=== PATIENT | male | born 1975 | race African-American/Black ===

== ENCOUNTER 2020-06-22 21:14 | Emergency (ER) | payer MEDICAID ==
[~2020-06-22] VITALS: Ht 182.9 cm; Wt 111.1 kg
[2020-06-22] MEDS ORDERED: CLINDAMYCIN HCL 150 MG CAPSULE PO ONE (22:15)
[2020-06-22] MEDS ORDERED: KETOROLAC TROMETHAMINE 60 MG INJ IM ONE ×2 (22:15→22:22)
[2020-06-22] MEDS ORDERED: CLIN300C12 PO (22:19)
[2020-06-22] MEDS ORDERED: KETO10TA2 PO (22:19)
[2020-06-22] MEDS ORDERED: CLINDAMYCIN HCL 300 MG CAPSULE ONE (22:22)
--- NOTE | 2020-06-22 22:23 | NUR ---
45 y/o male presents to ED for a tooth ache. Had a crown put in yesterday and immediately after the Novacaine wore off he felt strong pain. Decided to visit ED. No other issues or complaints at this time.
--- NOTE | 2020-06-22 22:25 | NUR ---
Patient discharged to home in stable condition. Written and verbal after care instructions given. Patient verbalizes understanding of instructions. Stressed follow up or return to ER for worsening s/s. Steady gait. Belongings with patient.
[2020-06-22 22:26] VITALS: BP 127/87
== END 2020-06-22 22:28 | disposition home or self-care (01) ==
LOC: ER 21:14
DX: M27.2 Inflammatory conditions of jaws (principal); E11.9 Type 2 diabetes mellitus without complications; F17.200 Nicotine dependence, unspecified, uncomplicated
CPT/HCPCS: 96372; 99283; J1885; A4663

== ENCOUNTER 2021-05-03 02:12 | Emergency (ER) | payer MEDICAID ==
[~2021-05-03] VITALS: Ht 182.9 cm; Wt 101.6 kg
[~2021-05-03 02:12] MED LIST: CLIN300C12 PO; KETO10TA2 PO
--- NOTE | 2021-05-03 02:29 | NUR ---
DR. MANN AT BEDSIDE, MSE IN PROGRESS.
--- NOTE | 2021-05-03 02:41 | NUR ---
Patient discharged to home in stable condition. Written and verbal after care instructions given. Patient verbalizes understanding of instructions. Stressed follow up or return to ER for worsening s/s. pt ambulated with dteady gait. denies pain.
[2021-05-03 02:42] VITALS: BP 119/81
[2021-05-03] MEDS ORDERED: TDAP DIPH,PERTUSS,TET VAC/PF 0.5 ML DISP.SYRIN IM ONE ×2 (02:45)
== END 2021-05-03 02:43 | disposition home or self-care (01) ==
LOC: ER 02:22
DX: S61.431A Puncture wound without foreign body of right hand, initial encounter (principal); W45.0XXA Nail entering through skin, initial encounter; Y93.89 Activity, other specified; Y92.89 Other specified places as the place of occurrence of the external cause; F17.210 Nicotine dependence, cigarettes, uncomplicated
CPT/HCPCS: 90715; A4663

== ENCOUNTER 2021-05-22 17:07 | Emergency (ER) | payer MEDICAID ==
[~2021-05-22] VITALS: Ht 182.9 cm; Wt 102.1 kg
--- NOTE | 2021-05-22 17:53 | NUR ---
PT IS IN ROOM #2A. DR ESQUIVEL EVALUATED THE PT.
[2021-05-22] MEDS ORDERED: PRED20TA PO (18:22)
[2021-05-22] MEDS ORDERED: HYDR-4209 PO (18:22)
--- NOTE | 2021-05-22 18:42 | NUR ---
PT WAS D/C'd TO HOME. D/C INSTRUCTIONS GIVEN TO THE PT BY DR ESQUIVEL.
[2021-05-22 18:43] VITALS: BP 132/89
== END 2021-05-22 18:44 | disposition home or self-care (01) ==
LOC: ER 17:09
DX: M25.511 Pain in right shoulder (principal); F17.210 Nicotine dependence, cigarettes, uncomplicated
CPT/HCPCS: 73030; A4663

== ENCOUNTER 2021-08-20 13:42 | Emergency (ER) | payer MEDICAID ==
[~2021-08-20] VITALS: Ht 182.9 cm; Wt 102.1 kg
[~2021-08-20 13:42] MED LIST changes: +HYDR-4209 PO; +PRED20TA PO
--- NOTE | 2021-08-20 13:56 | NUR ---
[email or web address],medical screening exam in progress
[2021-08-20] MEDS ORDERED: KETOROLAC TROMETHAMINE 60 MG INJ IM ONE ×2 (14:00→14:03)
[2021-08-20] MEDS ORDERED: IBUP-1957 PO (14:03)
[2021-08-20] MEDS ORDERED: CLIN300C12 PO (14:03)
--- NOTE | 2021-08-20 14:17 | NUR ---
Patient discharged to home in stable condition with brisk steady gait. Written and verbal after care instructions given. Patient verbalized understanding and compliance of instructions. Stressed follow up with his dentist and specialized dental provider or return to ER for worsening s/s.
== END 2021-08-20 14:19 | disposition home or self-care (01) ==
LOC: ER 13:42
DX: K03.81 Cracked tooth (principal); F17.210 Nicotine dependence, cigarettes, uncomplicated; R03.0 Elevated blood-pressure reading, without diagnosis of hypertension
CPT/HCPCS: 96372; 99283; J1885; A4663

== ENCOUNTER 2021-09-28 11:07 | Emergency (ER) | payer MEDICAID ==
[~2021-09-28] VITALS: Ht 182.9 cm; Wt 102.1 kg
[~2021-09-28 11:07] MED LIST changes: +IBUP-1957 PO
--- NOTE | 2021-09-28 12:35 | NUR ---
Dr Garcia at the bedside for MSE.
[2021-09-28] MEDS ORDERED: IBUPROFEN 400 MG TABLET ONE (12:44)
[2021-09-28] MEDS ORDERED: ACETAMINOPHEN 325 MG TABLET ONE (12:44)
[2021-09-28] MEDS ORDERED: IBUPROFEN 400 MG TABLET PO ONE (12:45)
[2021-09-28] MEDS ORDERED: ACETAMINOPHEN 325 MG TABLET PO ONE (12:45)
[2021-09-28 14:05] VITALS: BP 121/68
--- NOTE | 2021-09-28 14:05 | NUR ---
Patient discharged to home in stable condition. Written and verbal after care instructions given. Patient verbalizes understanding of instructions. Stressed follow up or return to ER for worsening s/s.
== END 2021-09-28 14:06 | disposition home or self-care (01) ==
LOC: ER 11:07
DX: M25.511 Pain in right shoulder (principal); F17.210 Nicotine dependence, cigarettes, uncomplicated
CPT/HCPCS: 73030; A4663

== ENCOUNTER 2021-10-02 02:45 | Emergency (ER) | payer MEDICAID ==
[~2021-10-02] VITALS: Ht 182.9 cm; Wt 102.1 kg
--- NOTE | 2021-10-02 02:55 | NUR ---
Dr. De La Torre at bedside for MSE
[2021-10-02] MEDS ORDERED: PIPERACILLIN/TAZOBACTAM/D5W 50 ML IV ONE (02:59)
[2021-10-02] MEDS ORDERED: ONDANSETRON ODT 4 MG TAB.RAPDIS ONE (02:59)
[2021-10-02] MEDS ORDERED: HYDROCODONE/APAP 5-325MG TABLET ONE (02:59)
[2021-10-02] MEDS ORDERED: PIPERACILLIN SODIUM/TAZOBACTAM 3.375 G in IV DEXTROSE 5% 50 ML IV ONE (03:00)
[2021-10-02] MEDS ORDERED: ONDANSETRON ODT 4 MG TAB.RAPDIS SL ONE (03:00)
[2021-10-02] MEDS ORDERED: HYDROCODONE/APAP 5-325MG TABLET PO ONE (03:00)
[2021-10-02] MEDS ORDERED: AMOX-430 PO (03:05)
[2021-10-02] MEDS ORDERED: HYDR-4209 PO (03:05)
[2021-10-02] MEDS ORDERED: ONDA4TAB5 PO (03:05)
[2021-10-02 03:43] VITALS: BP 125/78
== END 2021-10-02 03:43 | disposition home or self-care (01) ==
LOC: ER 02:47
DX: S61.202A Unspecified open wound of right middle finger without damage to nail, initial encounter (principal); Y04.1XXA Assault by human bite, initial encounter; Y93.89 Activity, other specified; Y92.511 Restaurant or cafe as the place of occurrence of the external cause; Z91.013 Allergy to seafood; F17.210 Nicotine dependence, cigarettes, uncomplicated
CPT/HCPCS: 99284; 96365; 99406; J2543; A4663; Q0162

== ENCOUNTER 2021-10-03 14:42 | Emergency (ER) | payer MEDICAID ==
[~2021-10-03] VITALS: Ht 182.9 cm; Wt 102.1 kg
[~2021-10-03 14:42] MED LIST changes: +AMOX-430 PO; +ONDA4TAB5 PO
[2021-10-03 16:14] VITALS: BP 121/79
--- NOTE | 2021-10-03 16:14 | NUR ---
Patient discharged to home in stable condition. Written and verbal after care instructions given. Patient verbalizes understanding of instructions. Stressed follow up or return to ER for worsening s/s. Patient ambualted with steady gait. A/Ox4.
== END 2021-10-03 16:15 | disposition home or self-care (01) ==
LOC: ER 14:43
DX: S61.252D Open bite of right middle finger without damage to nail, subsequent encounter (principal); Y04.1XXD Assault by human bite, subsequent encounter; R22.9 Localized swelling, mass and lump, unspecified; F17.210 Nicotine dependence, cigarettes, uncomplicated; Z91.013 Allergy to seafood
CPT/HCPCS: 73140; A4663

== ENCOUNTER 2021-10-15 13:35 | Emergency (ER) | payer MEDICAID ==
[~2021-10-15] VITALS: Ht 182.9 cm; Wt 102.1 kg
--- NOTE | 2021-10-15 13:50 | NUR ---
AT BEDSIDE FOR EVALUATION.
[2021-10-15] MEDS ORDERED: IV NORMAL SALINE 500 ML BAG IV ONE ×2 (14:00→15:15)
--- NOTE | 2021-10-15 14:00 | NUR ---
20 gauge IV started on left forearm. Iv flushed and patent. Patient started on fluids. Comfort measures provided.
[2021-10-15 14:39] LABS: HEMATOCRIT 42.4 % (36.7-47.1); MEAN CORPUSCULAR HEMOGLOBIN 26.6 uug (23.8-33.4); MEAN CORPUSCULAR VOLUME 82.8 fL (73.0-96.2); PLATELET COUNT (AUTO) 200 K/uL (152-348)
[2021-10-15 14:44] LABS: CREATININE 1.2 mg/dL (0.6-1.3); POTASSIUM 3.9 mmol/L (3.5-5.1)
--- NOTE | 2021-10-15 14:45 | NUR ---
Patient was given a light snack. Reported no discomfort at time.
[2021-10-15 15:30] LABS: *BILIRUBIN,URIN NEGATIVE (NEGATIVE); *BLOOD, URINE NEGATIVE (NEGATIVE); *CLARITY,URINE CLEAR (CLEAR); *KETONES,URINE NEGATIVE (NEGATIVE); *UROBILINOGEN,URINE 0.2 E.U./dl (NORMAL); LEUKOCYTE ESTERASE ,URINE NEGATIVE (NEGATIVE); NITRITE, URINE NEGATIVE (NEGATIVE)
[2021-10-15 15:35] LABS: *COLOR,URINE STRAW (YELLOW); UGLUCOSE 2+ (NEGATIVE)
[2021-10-15 15:42] LABS: ABG BASE EXCESS 0.8 mmol/L; ABG HCO3 27.8 mmol/L; ABG PH 7.329 (7.350-7.450); ABG SITE RIGHT RADIAL; ABG TOTAL HEMOGLOBIN 14.4 G/dL (13.5-18.0); COHb 2.4 % (0.5-1.5); MetHb 0.3 % (0.0-1.5); O2Hb 55.5 % (94.0-97.0); VENT MODE Room Air
[2021-10-15 15:55] LABS: BACTERIA,URINE NONE SEEN /HPF (NONE SEEN); WBC,URINE NONE SEEN /HPF (0-3)
[2021-10-15 15:56] LABS: RBC,URINE 0-3 /HPF (0-3)
[2021-10-15 16:31] LABS: POTASSIUM 4.1 mmol/L (3.5-5.1)
[2021-10-15] MEDS ORDERED: METF-440 PO (16:46)
--- NOTE | 2021-10-15 17:10 | NUR ---
EB=[id number]. DISCHARGE INSTRUCTIONS RENDERED BY MD PRESCRIPTION FOR METFORMIN RENDERED. PT TO FOLLOW UP WITH PMD. SALINE LOCK DCD. PT FEELING BETTER AT THIS TIME; COUNSELLED ON DIETARY RECOMMEDATION AND BLOOD SUGAR CHECKING.
[2021-10-15 17:14] VITALS: BP 106/69
== END 2021-10-15 17:25 | disposition home or self-care (01) ==
LOC: ER 13:35
DX: R20.2 Paresthesia of skin (principal); R73.9 Hyperglycemia, unspecified; Z91.013 Allergy to seafood; Z82.49 Family history of ischemic heart disease and other diseases of the circulatory system; F17.210 Nicotine dependence, cigarettes, uncomplicated; E87.2 Acidosis
CPT/HCPCS: 80048 ×2; 81001; 82009; 85025; 85379; 36415; 70450; 99284; 96360; 36600; J7040 ×2; A4663

== ENCOUNTER 2021-10-17 19:41 | Emergency (ER) | payer SELFPAY ==
[~2021-10-17 19:41] MED LIST changes: +METF-440 PO
--- NOTE | 2021-10-17 20:00 | NUR ---
PATIENT WAS CALLED TO BE TRIAGED BUT WAS NOT PRESENT IN THE WAITING ROOM OR OUTSIDE OF ER.
--- NOTE | 2021-10-17 20:30 | NUR ---
PATIENT WAS CALLED TO BE TRIAGED BUT WAS NOT PRESENT IN THE WAITING ROOM OR OUTSIDE OF ER.
--- NOTE | 2021-10-17 21:00 | NUR ---
PATIENT WAS CALLED TO BE TRIAGED BUT WAS NOT IN THE WAITING ROOM OR OUTSIDE OF ER. PATIENT WAS NOT TRIAGED OR SEEN BY ERMD.
== END 2021-10-17 21:00 | disposition left against medical advice (07) ==
LOC: ER 19:43
DX: Z53.21 Procedure and treatment not carried out due to patient leaving prior to being seen by health care provider (principal)

== ENCOUNTER 2021-10-18 09:24 | Inpatient (IN) | payer MEDICAID ==
[~2021-10-18] VITALS: Ht 182.9 cm; Wt 104.3 kg
[2021-10-18] MEDS ORDERED: IV NORMAL SALINE 1000 ML BAG IV ONE (09:45)
[2021-10-18] MEDS ORDERED: ACETAMINOPHEN ES 500 MG TABLET PO ONE (09:45)
[2021-10-18 09:52] LABS: HEMATOCRIT 43.5 % (36.7-47.1); MEAN CORPUSCULAR HEMOGLOBIN 26.9 uug (23.8-33.4); MEAN CORPUSCULAR VOLUME 83.2 fL (73.0-96.2); PLATELET COUNT (AUTO) 201 K/uL (152-348)
[2021-10-18 10:14] LABS: CREATININE 1.2 mg/dL (0.6-1.3); POTASSIUM 4.2 mmol/L (3.5-5.1)
[2021-10-18] MEDS ORDERED: INSULIN REGULAR, HUMAN 300 UNIT/3 ML VIAL SQ ONE (10:15)
[2021-10-18] MEDS ORDERED: ACETAMINOPHEN ES 500 MG TABLET ONE (10:28)
[2021-10-18] MEDS ORDERED: INSULIN REGULAR, HUMAN 300 UNIT/3 ML VIAL ONE (10:28)
[2021-10-18 10:43] LABS: ABG BASE EXCESS 1.7 mmol/L; ABG HCO3 27.1 mmol/L; ABG PCO2 45.1 mmHg (35.0-45.0); ABG PH 7.396 (7.350-7.450); ABG PO2 54.1 mmHg (75.0-100.0); ABG SITE RIGHT BRACHIAL; ABG TOTAL HEMOGLOBIN 14.6 G/dL (13.5-18.0); COHb 2.4 % (0.5-1.5); O2Hb 87.4 % (94.0-97.0); VENT MODE ROOM AIR
[2021-10-18 11:02] LABS: ETHANOL < 3 MG/DL (0-0)
[2021-10-18 11:04] LABS: ALANINE AMINOTRANSFERASE 16 U/L (16-63); ALKALINE PHOSPHATASE 69 U/L (50-136); ASPARTATE AMINOTRANSFERASE 16 U/L (15-37); BILIRUBIN,DIRECT 0.1 mg/dL (0.0-0.2); BILIRUBIN,TOTAL 0.2 mg/dL (0.2-1.0); LIPASE 294 U/L (73-393); TOTAL PROTEIN, SERUM 6.8 g/dL (6.4-8.2)
[2021-10-18 11:15] LABS: THYROID STIMULATING HORMONE 0.387 mIU/mL (0.358-3.740)
[2021-10-18 11:46] LABS: *BILIRUBIN,URIN NEGATIVE (NEGATIVE); *BLOOD, URINE NEGATIVE (NEGATIVE); *CLARITY,URINE CLEAR (CLEAR); *COLOR,URINE YELLOW (YELLOW); *KETONES,URINE NEGATIVE (NEGATIVE); *UROBILINOGEN,URINE 0.2 E.U./dl (NORMAL); LEUKOCYTE ESTERASE ,URINE NEGATIVE (NEGATIVE); NITRITE, URINE NEGATIVE (NEGATIVE); PH,URINE 6.5 (5.0-8.0)
[2021-10-18 11:51] LABS: UGLUCOSE 3+ (NEGATIVE)
[2021-10-18 11:56] LABS: BACTERIA,URINE NONE SEEN /HPF (NONE SEEN); RBC,URINE NONE SEEN /HPF (0-3); SQUAMOUS EPITHELIAL CELL,UR NONE SEEN /HPF (NONE SEEN); WBC,URINE NONE SEEN /HPF (0-3)
[2021-10-18 11:58] LABS: *AMPHETAMINE, URINE NEGATIVE (NEGATIVE); *CANNABINOID, URINE NEGATIVE (NEGATIVE); *COCCAINE, URINE NEGATIVE (NEGATIVE); *OPIATE, URINE NEGATIVE (NEGATIVE); *PHENCYCLIDINE SCREEN,URINE NEGATIVE (NEGATIVE)
[2021-10-18] MEDS ORDERED: HYDROCODONE/APAP 5-325MG TABLET PO PRN (12:00)
[2021-10-18] MEDS ORDERED: ACETAMINOPHEN 325 MG TABLET PO PRN (12:00)
[2021-10-18] MEDS ORDERED: ONDANSETRON 4 MG/2 ML VIAL IV PRN (12:00)
[2021-10-18] MEDS ORDERED: MAGNESIUM HYDROXIDE 30 ML LIQUID UDC PO PRN (12:00)
--- NOTE | 2021-10-18 12:04 | NUR ---
report given to Nathen ANDREWS @[id number]
--- NOTE | 2021-10-18 12:25 | NUR ---
RECEIVED PATIENT FOR ADMISSION 46YEARS OLD MALE BY W/CHAIR TO ROOM 301 BED A PLACED INTO BED WITH DX OF HYPERGLYCEMIA FIXED AND MADE COMFORTABLE PATIENT IS ALERT AND ORIENTED DENIES PAIN OR DISCOMFORTS AT THIS TIME SKIN IS WARM AND DRY ORIENTED TO ROOM AND FACILITY PROTOCOL HEPLOCK RIGHT FA IS INTACT WITH NO S/S OF INFILTERATION AT THIS TIME ORDERS NOTED AND CARRIED OUT FROM DR DENTON,WILL CONTINUE TO OBSERVE.
[2021-10-18] MEDS ORDERED: METFORMIN HCL 500 MG TABLET PO SCH (12:30)
[2021-10-18 12:42] VITALS: BP 99/67
--- NOTE | 2021-10-18 14:06 | NUR ---
1220 patient transfered to [facility], report given to Nathen ANDREWS, patient wheeled up to floor in , is stable. IV in R FA intact and flushable.
[2021-10-18 15:55] VITALS: BP 121/80
--- NOTE | 2021-10-18 17:05 | NUR ---
DR EDNTON HERE SEEN PATIENT WITH ORDER TO START BLOOD SUGAR CHECKS WITH AGGRESSIVE COVERAGE AND NOTED.
[2021-10-18] MEDS ORDERED: DEXTROSE 50% 50 ML DISP.SYRIN IV PRN (17:15)
[2021-10-18] MEDS ORDERED: INSULIN REGULAR, HUMAN 300 UNITS/3 ML VIAL SQ PRN (17:15)
[2021-10-18] MEDS: glipiZIDE 10 MG TABLET PO SCH (17:28)
[2021-10-18] MEDS: INSULIN REGULAR, HUMAN 300 UNIT/3 ML VIAL SQ PRN (17:33)
[2021-10-18] MEDS: METFORMIN HCL 500 MG TABLET PO SCH (17:34)
[2021-10-18] MEDS: BLOOD SUGAR DIAGNOSTIC 1 EACH STRIP VI SCH ×2 (17:35→21:45)
--- NOTE | 2021-10-18 18:31 | NUR ---
BLOOD SUGAR IS 301 WITH SLIDING SCALE COVERAGE ORDERED NO S/S OF HYPO/HYPERGLYCEMIC REACTIONS AT THIS TIME.RESTING IN ROOM WITH HIS AT HIS BEDSIDE.
[2021-10-18 20:00] VITALS: BP 112/75
[2021-10-19 04:00] VITALS: BP 104/77
[2021-10-19] MEDS: glipiZIDE 10 MG TABLET PO SCH (06:33)
[2021-10-19] MEDS: BLOOD SUGAR DIAGNOSTIC 1 EACH STRIP VI SCH (06:41)
[2021-10-19] MEDS ORDERED: PANTOPRAZOLE SODIUM 40 MG TABLET.DR PO SCH (07:00)
[2021-10-19 07:11] LABS: HEMATOCRIT 41.9 % (36.7-47.1); MEAN CORPUSCULAR HEMOGLOBIN 27.1 uug (23.8-33.4); PLATELET COUNT (AUTO) 188 K/uL (152-348)
--- NOTE | 2021-10-19 07:30 | NUR ---
RECEIVED PATIENT IN BED AWAKE ALERT AND ORIENTED DENIES PAIN OR DISCOMFORTS AT THIS TIME ON ROOM AIR WITH NO S/S OF INFILTERATION ON SITE NO S/S OF HYPO/HYPERGLYCEMIC REACTIONS CALL LIGHTS AND PERSONAL BELONGINGS ARE WITHIN EASY REACH AT THIS TIME WILL CONTINUE TO OBSERVE.
[2021-10-19 07:37] LABS: BILIRUBIN,TOTAL 0.3 mg/dL (0.2-1.0); CREATININE 0.9 mg/dL (0.6-1.3); PHOSPHOROUS 4.2 mg/dL (2.5-4.9); POTASSIUM 4.2 mmol/L (3.5-5.1); TOTAL PROTEIN, SERUM 6.4 g/dL (6.4-8.2)
[2021-10-19] MEDS: INSULIN REGULAR, HUMAN 300 UNIT/3 ML VIAL SQ PRN (07:58)
[2021-10-19] MEDS: METFORMIN HCL 500 MG TABLET PO SCH (08:23)
[2021-10-19 08:24] LABS: THYROID STIMULATING HORMONE 0.321 mIU/mL (0.358-3.740)
[2021-10-19 09:15] LABS: MAGNESIUM 1.3 mg/dL (1.8-2.4)
--- NOTE | 2021-10-19 09:20 | NUR ---
PATIENT CALLED ME TO HIS ROOM AND STATED THAT HE WANTS TO BE DISCHARGED BECAUSE THE SECURITY DID NOT ALLOW HIS TO COME UP TO HIS ROOM. CALLED THE SECURITY SPOKE WITH THEM AND THEY STATED THAT PATIENTS WAS UNABLE TO PRODUCE ANY RECORD OF BEING VACCINATED OR A RECENT NEGATIVE COVID TEST NOTIFIED DR DENTON THAT PATIENT WANTS TO LEAVE AGAINST MEDICAL ADVISE. DIRECTOR SPOKE WITH PATIENT AND HE WAS ADAMANT TO LEAVE.
--- NOTE | 2021-10-19 09:30 | NUR ---
PATIENT IS HERE AND STATED THAT SHE HAD A NEGATIVE RAPID TEST THAT IS NEGATIVE BUT PATIENT STILL INSISTED TO LEAVE HIS TRIED TO PERSUADE HIM TO STAY BUT HE STATED THAT HE MUST LEAVE.
--- NOTE | 2021-10-19 09:35 | NUR ---
PATIENT SIGNED THE AMA FORM REMOVED HIS HEPLOCK AND PATIENT LEFT WITH HIS .
== END 2021-10-19 09:35 | disposition left against medical advice (07) | DRG 420 ==
LOC: ER 09:24 → MEDSURG3 12:00
PROVIDERS: ADMIT Internal Medicine; ATTEND Internal Medicine
DX: E11.65 Type 2 diabetes mellitus with hyperglycemia (principal); M12.519 Traumatic arthropathy, unspecified shoulder; G62.9 Polyneuropathy, unspecified; E11.40 Type 2 diabetes mellitus with diabetic neuropathy, unspecified; E87.1 Hypo-osmolality and hyponatremia; E66.9 Obesity, unspecified; Z20.822 Contact with and (suspected) exposure to COVID-19; E78.5 Hyperlipidemia, unspecified; E83.42 Hypomagnesemia; F17.210 Nicotine dependence, cigarettes, uncomplicated; Z28.310 Unvaccinated for COVID-19; R53.1 Weakness; Z79.84 Long term (current) use of oral hypoglycemic drugs; Z68.31 Body mass index [BMI] 31.0-31.9, adult; Z83.3 Family history of diabetes mellitus
CPT/HCPCS: 36415; 36600; 71045; 83690; 83735; 84100; 84443; 85025; 93005; A4663; A9150; G0378; G0480; J1815; J7040

== ENCOUNTER 2022-06-20 19:52 | Emergency (ER) | payer MEDICAID, OTHER ==
[~2022-06-20] VITALS: Ht 182.9 cm; Wt 104.3 kg
[~2022-06-20 19:52] MED LIST changes: -AMOX-430 PO; -CLIN300C12 PO; -HYDR-4209 PO; -IBUP-1957 PO; -KETO10TA2 PO; -ONDA4TAB5 PO; -PRED20TA PO
--- NOTE | 2022-06-20 20:04 | NUR ---
Dr. Fox in room examining patient.
[2022-06-20] MEDS ORDERED: KETOROLAC TROMETHAMINE 15 MG INJ IM ONE (20:30)
[2022-06-20] MEDS ORDERED: KETOROLAC TROMETHAMINE 15 MG INJ ONE (20:43)
[2022-06-20] MEDS ORDERED: NAPR-1009 PO (21:24)
--- NOTE | 2022-06-20 21:33 | NUR ---
Patient discharged to home in stable condition. Written and verbal after care instructions given. Patient verbalizes understanding of instructions. Stressed follow up or return to ER for worsening s/s. Patient walked out with steady gait.
[2022-06-20 22:03] VITALS: BP 135/90
== END 2022-06-20 21:40 | disposition home or self-care (01) ==
LOC: ER 19:52
DX: S62.630A Displaced fracture of distal phalanx of right index finger, initial encounter for closed fracture (principal); F17.210 Nicotine dependence, cigarettes, uncomplicated; Z91.013 Allergy to seafood; Z79.899 Other long term (current) drug therapy; W22.8XXA Striking against or struck by other objects, initial encounter; Y93.89 Activity, other specified; Y92.89 Other specified places as the place of occurrence of the external cause; Y99.8 Other external cause status
CPT/HCPCS: 99283; 73140; 29130; 96372; J1885; A4663

== ENCOUNTER 2023-09-12 15:00 | Emergency (ER) | payer OTHER ==
[~2023-09-12] VITALS: Ht 182.9 cm; Wt 99.8 kg
[~2023-09-12 15:00] MED LIST changes: +NAPR-1009 PO
[2023-09-12 16:05] LABS: *BILIRUBIN,URIN NEGATIVE (NEGATIVE); *BLOOD, URINE NEGATIVE (NEGATIVE); *CLARITY,URINE CLEAR (CLEAR); *COLOR,URINE YELLOW (YELLOW); *KETONES,URINE NEGATIVE (NEGATIVE); *PROTEIN,URINE NEGATIVE (NEGATIVE); *UROBILINOGEN,URINE 0.2 E.U./dl (NORMAL); LEUKOCYTE ESTERASE ,URINE NEGATIVE (NEGATIVE); NITRITE, URINE NEGATIVE (NEGATIVE); PH,URINE 5.5 (5.0-8.0)
[2023-09-12 16:08] LABS: UGLUCOSE 2+ (NEGATIVE)
[2023-09-12 16:27] LABS: BASOPHILS # (AUTO) 0.1 K/UL (0.0-0.2); BASOPHILS % (AUTO) 0.8 % (0.0-2.0); EOSINOPHILS # (AUTO) 0.1 K/uL (0.0-0.7); EOSINOPHILS % (AUTO) 1.6 % (0.0-7.0); HEMATOCRIT 44.1 % (36.7-47.1); HEMOGLOBIN 14.2 g/dL (12.5-16.3); LYMPHOCYTES # (AUTO) 1.6 K/uL (0.8-4.8); LYMPHOCYTES % (AUTO) 19.8 % (20.5-51.5); MEAN CORPUSCULAR HEMOGLOBIN 26.8 uug (23.8-33.4); MEAN CORPUSCULAR HGB CONC 32 g/dL (32.5-36.3); MEAN CORPUSCULAR VOLUME 83.1 fL (73.0-96.2); MONOCYTES # (AUTO) 0.4 K/uL (0.1-1.30); MONOCYTES % (AUTO) 5.5 % (0.0-11.0); NEUTROPHILS # (AUTO) 5.9 K/uL (1.8-8.9); NEUTROPHILS % (AUTO) 72.3 % (38.5-71.5); PLATELET COUNT (AUTO) 231 K/uL (152-348); RED BLOOD CELL COUNT(AUTO) 5.31 MIL/uL (4.06-5.63); RED CELL DISTRIBUTION WIDTH 14.9 % (12.1-16.2); WHITE BLOOD COUNT (AUTO) 8.2 K/uL (3.6-10.2)
[2023-09-12 16:39] LABS: DIFFERENTIAL COMMENT 1
[2023-09-12] MEDS ORDERED: KETOROLAC TROMETHAMINE 15 MG INJ ONE (16:44)
[2023-09-12] MEDS ORDERED: METOCLOPRAMIDE HCL 10 MG/2 ML VIAL ONE (16:44)
[2023-09-12] MEDS: METOCLOPRAMIDE HCL 10 MG/2 ML VIAL IV ONE (16:51)
[2023-09-12] MEDS: IV NORMAL SALINE 1000 ML BAG IV ONE (16:51)
[2023-09-12] MEDS: KETOROLAC TROMETHAMINE 15 MG INJ IVP ONE (16:51)
[2023-09-12 16:55] LABS: ALANINE AMINOTRANSFERASE 19 U/L (16-63); ALBUMIN 3.4 g/dL (3.4-5.0); ALKALINE PHOSPHATASE 92 U/L (50-136); ASPARTATE AMINOTRANSFERASE 6 U/L (15-37); BILIRUBIN,DIRECT 0.1 mg/dL (0.0-0.2); BILIRUBIN,TOTAL 0.4 mg/dL (0.2-1.0); CALCIUM 10.6 mg/dL (8.5-10.1); CARBON DIOXIDE 28 mmol/L (21-32); CHLORIDE 101 mmol/L (98-107); CREATININE 0.9 mg/dL (0.6-1.3); GLUCOSE 313 mg/dL (74-106); NT-PRO BNP 26 pg/mL (0-125); POTASSIUM 3.7 mmol/L (3.5-5.1); SODIUM SERUM 138 mmol/L (136-145); TOTAL PROTEIN, SERUM 7.7 g/dL (6.4-8.2); UREA NITROGEN, BLOOD 7 mg/dL (7-18)
[2023-09-12 17:03] LABS: LIPASE 151 U/L (16-77)
[2023-09-12] MEDS ORDERED: [UNRECOGNIZED DRUG - OTHER] (18:22)
[2023-09-12] MEDS ORDERED: PROM118S5 PO (18:22)
[2023-09-12] MEDS ORDERED: METO-295 PO (18:22)
[2023-09-12] MEDS ORDERED: AZIT500T PO (18:22)
[2023-09-12 18:58] LABS: ACETONE, SERUM NEGATIVE (NEGATIVE)
[2023-09-12 18:59] VITALS: BP 133/80; TEMP 98; O2SAT 99
[2023-09-12 23:40] LABS: BACTERIA,URINE RARE /HPF (NONE SEEN); RBC,URINE 0-3 /HPF (0-3); SQUAMOUS EPITHELIAL CELL,UR NONE SEEN /HPF (NONE SEEN); WBC,URINE 0-3 /HPF (0-3)
== END 2023-09-12 18:59 | disposition home or self-care (01) ==
LOC: ER 15:00
DX: J18.1 Lobar pneumonia, unspecified organism (principal); E86.0 Dehydration; R73.9 Hyperglycemia, unspecified; F17.200 Nicotine dependence, unspecified, uncomplicated; Z79.899 Other long term (current) drug therapy; Z20.822 Contact with and (suspected) exposure to COVID-19; Z60.2 Problems related to living alone; Z91.013 Allergy to seafood
CPT/HCPCS: 99291; 70450; 96374; 96361; 71045; 96375; 87426; 87804 ×2; 80076; 80048; 81001; 82009; 83880; 83690; 85025; 84145; 85730; 87040 ×2; 84484; 36415; 93005 ×2; 74176; 83605 ×2; 87086; J1885; J2765; J7040; A4606; A4663

== ENCOUNTER 2023-09-15 17:51 | Emergency (ER) | payer OTHER ==
[~2023-09-15] VITALS: Ht 182.9 cm; Wt 99.8 kg
[~2023-09-15 17:51] MED LIST changes: +AZIT500T PO; +METO-295 PO; +PROM118S5 PO; +[UNRECOGNIZED DRUG - OTHER]
[2023-09-15] MEDS ORDERED: OXYCODONE/APAP 5-325 MG TABLET ONE (19:00)
[2023-09-15] MEDS ORDERED: ONDANSETRON HCL 4 MG TABLET ONE (19:00)
[2023-09-15] MEDS: ONDANSETRON HCL 4 MG TABLET PO ONE (19:02)
[2023-09-15] MEDS: OXYCODONE/APAP 5-325 MG TABLET PO ONE (19:02)
[2023-09-15 19:06] LABS: BASOPHILS # (AUTO) 0.1 K/UL (0.0-0.2); BASOPHILS % (AUTO) 1.1 % (0.0-2.0); EOSINOPHILS # (AUTO) 0.1 K/uL (0.0-0.7); EOSINOPHILS % (AUTO) 1.9 % (0.0-7.0); HEMATOCRIT 40.8 % (36.7-47.1); HEMOGLOBIN 12.8 g/dL (12.5-16.3); LYMPHOCYTES # (AUTO) 2.1 K/uL (0.8-4.8); LYMPHOCYTES % (AUTO) 31.2 % (20.5-51.5); MEAN CORPUSCULAR HEMOGLOBIN 26.3 uug (23.8-33.4); MEAN CORPUSCULAR HGB CONC 32 g/dL (32.5-36.3); MEAN CORPUSCULAR VOLUME 83.5 fL (73.0-96.2); MONOCYTES # (AUTO) 0.6 K/uL (0.1-1.30); MONOCYTES % (AUTO) 8.1 % (0.0-11.0); NEUTROPHILS # (AUTO) 3.9 K/uL (1.8-8.9); NEUTROPHILS % (AUTO) 57.7 % (38.5-71.5); PLATELET COUNT (AUTO) 257 K/uL (152-348); RED BLOOD CELL COUNT(AUTO) 4.88 MIL/uL (4.06-5.63); RED CELL DISTRIBUTION WIDTH 14.8 % (12.1-16.2); WHITE BLOOD COUNT (AUTO) 6.8 K/uL (3.6-10.2)
[2023-09-15 19:08] LABS: CALCIUM 9.2 mg/dL (8.5-10.1); CARBON DIOXIDE 30 mmol/L (21-32); CHLORIDE 103 mmol/L (98-107); CREATININE 0.9 mg/dL (0.6-1.3); GLUCOSE 274 mg/dL (74-106); POTASSIUM 3.7 mmol/L (3.5-5.1); SODIUM SERUM 141 mmol/L (136-145); UREA NITROGEN, BLOOD 9 mg/dL (7-18)
[2023-09-15 19:21] LABS: NT-PRO BNP 21 pg/mL (0-125)
[2023-09-15] MEDS ORDERED: METF-440 PO (22:01)
[2023-09-15] MEDS ORDERED: HYDR-4209 PO (22:01)
[2023-09-15 22:19] VITALS: BP 126/87; O2SAT 96
== END 2023-09-15 22:15 | disposition home or self-care (01) ==
LOC: ER 17:52
DX: R07.89 Other chest pain (principal); G62.9 Polyneuropathy, unspecified; I10 Essential (primary) hypertension; E11.9 Type 2 diabetes mellitus without complications; F17.210 Nicotine dependence, cigarettes, uncomplicated; Z91.013 Allergy to seafood; Z79.899 Other long term (current) drug therapy; Z79.84 Long term (current) use of oral hypoglycemic drugs
CPT/HCPCS: 36415; 71045; 84484; 85025; 93005; A4606; A4663; Q0162

== ENCOUNTER 2023-11-23 21:04 | Emergency (ER) | payer OTHER ==
[~2023-11-23] VITALS: Ht 182.9 cm; Wt 99.8 kg
[~2023-11-23 21:04] MED LIST changes: +HYDR-4209 PO
[2023-11-23] MEDS ORDERED: VANCOMYCIN IV 200 ML ONE (21:48)
[2023-11-23] MEDS ORDERED: CEFTRIAXONE /D5W 50ML IVPB **ER PYXIS IV ONE (21:48)
[2023-11-23] MEDS: CEFTRIAXONE 1 G in IV DEXTROSE 5% 50 ML IV ONE (21:50)
[2023-11-23] MEDS: VANCOMYCIN IV 1,000 MG in IV DEXTROSE 5% 250 ML IV ONE (21:50)
[2023-11-23 21:56] LABS: BASOPHILS # (AUTO) 0.1 K/UL (0.0-0.2); BASOPHILS % (AUTO) 0.9 % (0.0-2.0); EOSINOPHILS # (AUTO) 0.3 K/uL (0.0-0.7); EOSINOPHILS % (AUTO) 4.3 % (0.0-7.0); HEMATOCRIT 40.9 % (36.7-47.1); HEMOGLOBIN 13.2 g/dL (12.5-16.3); LYMPHOCYTES % (AUTO) 30.2 % (20.5-51.5); MEAN CORPUSCULAR HGB CONC 32 g/dL (32.5-36.3); MEAN CORPUSCULAR VOLUME 83.9 fL (73.0-96.2); MONOCYTES # (AUTO) 0.5 K/uL (0.1-1.30); MONOCYTES % (AUTO) 7.3 % (0.0-11.0); NEUTROPHILS # (AUTO) 3.9 K/uL (1.8-8.9); NEUTROPHILS % (AUTO) 57.3 % (38.5-71.5); PLATELET COUNT (AUTO) 254 K/uL (152-348); RED BLOOD CELL COUNT(AUTO) 4.88 MIL/uL (4.06-5.63); RED CELL DISTRIBUTION WIDTH 14.6 % (12.1-16.2); WHITE BLOOD COUNT (AUTO) 6.8 K/uL (3.6-10.2)
[2023-11-23 21:57] LABS: CALCIUM 9.1 mg/dL (8.5-10.1); DIFFERENTIAL COMMENT 1; POTASSIUM 3.6 mmol/L (3.5-5.1)
[2023-11-23 22:03] LABS: ALBUMIN 2.9 g/dL (3.4-5.0); BILIRUBIN,TOTAL 0.4 mg/dL (0.2-1.0); C-REACTIVE PROTEIN 3.2 mg/dL (0.00-0.30); ERYTHROCYTE SEDIMENTATION RATE 49 MM/HR (0-15); MAGNESIUM 1.9 mg/dL (1.8-2.4); TOTAL PROTEIN, SERUM 7.2 g/dL (6.4-8.2)
[2023-11-23] MEDS ORDERED: ONDANSETRON 4 MG/2 ML VIAL ONE (22:04)
[2023-11-23] MEDS ORDERED: MORPHINE SULFATE 4 MG/1 ML DISP.SYRIN ONE (22:04)
[2023-11-23] MEDS: MORPHINE SULFATE 4 MG/1 ML DISP.SYRIN IV ONE (22:11)
[2023-11-23] MEDS: ONDANSETRON 4 MG/2 ML VIAL IV ONE (22:12)
[2023-11-24 01:39] VITALS: O2SAT 99
[2023-11-25] MEDS ORDERED: CIPR500T5 PO (12:57)
== END 2023-11-24 03:21 | disposition left against medical advice (07) ==
LOC: ER 21:07
DX: E11.621 Type 2 diabetes mellitus with foot ulcer (principal); L97.519 Non-pressure chronic ulcer of other part of right foot with unspecified severity; E11.65 Type 2 diabetes mellitus with hyperglycemia; F17.200 Nicotine dependence, unspecified, uncomplicated; Z79.891 Long term (current) use of opiate analgesic; Z79.84 Long term (current) use of oral hypoglycemic drugs; Z20.822 Contact with and (suspected) exposure to COVID-19; Z79.899 Other long term (current) drug therapy; Z60.2 Problems related to living alone; Z91.018 Allergy to other foods
CPT/HCPCS: 99284; 96365; 96366; 96375; 87426; 80053; 83735; 85025; 85651; 86140; 87040 ×2; 36415; 73630; 96368; J0696; J2405; J3370; J2270; A4606; A4663

== ENCOUNTER 2023-11-25 10:22 | Emergency (ER) | payer OTHER ==
[~2023-11-25] VITALS: Ht 182.9 cm; Wt 99.8 kg
[2023-11-25] MEDS ORDERED: ACETAMINOPHEN 500 MG TABLET ONE (11:02)
[2023-11-25] MEDS: ACETAMINOPHEN 500 MG TABLET PO ONE (11:04)
[2023-11-25] MEDS: CIPROFLOXACIN HCL 250 MG TABLET PO ONE (11:33)
[2023-11-25] MEDS ORDERED: CIPR500T5 PO (12:57)
[2023-11-28 08:42] VITALS: BP 132/87; TEMP 98; O2SAT 98
== END 2023-11-28 08:43 | disposition home or self-care (01) ==
LOC: ER 10:27
DX: E11.621 Type 2 diabetes mellitus with foot ulcer (principal); L97.511 Non-pressure chronic ulcer of other part of right foot limited to breakdown of skin; E11.65 Type 2 diabetes mellitus with hyperglycemia; F17.200 Nicotine dependence, unspecified, uncomplicated; Z79.84 Long term (current) use of oral hypoglycemic drugs; Z79.891 Long term (current) use of opiate analgesic; Z79.899 Other long term (current) drug therapy; Z60.2 Problems related to living alone; Z91.013 Allergy to seafood
CPT/HCPCS: A4606; A4663; A9150